=== PATIENT | male | born 1955 | race Caucasian/White ===

== ENCOUNTER → 2016-09-12 | Outpatient (CLI) | payer OTHER ==
[~2016-09-12] MED LIST: ADDE30CA PO; CONC36TA4 PO; HYDR-3719 PO; IBUP-1114 PO; LASI40TA PO; MEDR4TAB PO; MULTCAP PO; OMEP20CA3 PO; PERC5TAB6 PO; TYLE325T5 PO; VARE05TA PO
--- NOTE | 2016-09-12 13:04 | REP ---
MRI BRAIN WITHOUT AND WITH CONTRAST: HISTORY: Lung carcinoma. CONTRAST: ProHance 18 mL. COMPARISON: 08/24/2015. Several punctate areas of increased signal intensity on T2-weighted images are present in the periventricular and subcortical white matter. This represents small vessel ischemic disease. There is no intraparenchymal hemorrhage, infarct, mass or midline shift. There is no abnormal enhancement. The ventricular system and cortical sulci are dilated consistent with minimal volume loss. There is no extracerebral collection. Minimal mucosal thickening is present in the left ethmoid and right maxillary sinuses. IMPRESSION: 1. Minimal small vessel ischemic disease. 2. Minimal volume loss. Signed by Elkin Smallwood MD 09/12/2016 01:08 P
== END ==
LOC: M RAD 10:52
PROVIDERS: ATTEND Internal Medicine Medical Oncology
DX: C34.90 Malignant neoplasm of unspecified part of unspecified bronchus or lung (principal); I73.9 Peripheral vascular disease, unspecified
CPT/HCPCS: 70553; A9576

== ENCOUNTER → 2016-09-17 | Outpatient (CLI) | payer OTHER ==
--- NOTE | 2016-09-18 07:13 | REP ---
PET/CT: History: Restaging non-small cell lung carcinoma. The patient is status post right middle lobectomy in August 2015 for a 3.5 cm mass. Recent CTs are shown enlarging subcarinal lymph node mass. Comparison CT study September 02, 2016. Comparison PET/CT study August 16, 2015. TECHNIQUE: 80 minutes following the intravenous injection of a 7.5 mCi dose of F-18 FDG, three-dimensional PET scintigraphy is acquired from the skull base to the proximal thighs. Triplanar noncontrast CT scanning is acquired through the same anatomic range for attenuation correction, and image registration with scan parameters optimized to minimize radiation exposure to the patient. PET scintigraphy and CT datasets were fused and displayed on a workstation with multiplanar and projection display capability. PET/CT Findings: There is hypermetabolic uptake in the subcarinal lymphadenopathy seen on recent CT study. Maximum standard uptake value in this thiago mass is 20.0. This lesion measures 4 cm in greatest diameter. No other abnormal hypermetabolic uptake is seen within the thorax. Head and neck soft tissues are unremarkable. No abnormal hypermetabolic uptake is seen in the abdomen or pelvis. Cholelithiasis is noted along with prominent vascular calcification. No abnormal skeletal hypermetabolic uptake is seen. No adrenal hypermetabolic uptake is observed. Impression: Hypermetabolic uptake is seen in the enlarging subcarinal lymph node mass consistent with recurrent malignancy. Signed by Wilbert Chandler MD 09/18/2016 10:12 A
== END ==
LOC: M RAD 07:42
PROVIDERS: ATTEND Internal Medicine Medical Oncology
DX: C34.90 Malignant neoplasm of unspecified part of unspecified bronchus or lung (principal); R59.9 Enlarged lymph nodes, unspecified

== ENCOUNTER 2016-10-06 12:57 | Outpatient (CLI) | payer OTHER ==
[2016-10-06] MEDS ORDERED: ADDE20CA PO (13:17)
[2016-10-06] MEDS ORDERED: fentaNYL 100 MCG/2 ML INJECTION (J3010) As Ordered ONE (13:29)
[2016-10-06] MEDS ORDERED: MIDAZOLAM INJ 2 MG/2 ML VIAL (J2250) As Ordered ONE ×2 (13:30→13:47)
[2016-10-06] MEDS ORDERED: LIDOCAINE VISCOUS 2% SOLN 15ML UDC As Ordered ONE (13:47)
[2016-10-06] MEDS ORDERED: LIDOCAINE 1% MDV 20ML VIAL As Ordered ONE ×2 (13:47→14:06)
[2016-10-06] MEDS ORDERED: THROMBIN SOLN 5,000 UNITS VIAL As Ordered ONE (14:07)
--- NOTE | 2016-10-06 14:45 | RO ---
DATE OF PROCEDURE: 10/06/2016 PREPROCEDURE DIAGNOSIS: Subcarinal adenopathy. POSTPROCEDURE DIAGNOSIS: Subcarinal adenopathy with chronic bronchitis and postsurgical changes. PROCEDURE: Fiberoptic bronchoscopy with washes, photos, and Lopez needle biopsy with fine needle aspirate. SURGEON: Dr. Angel Hamilton BRICK CATCHER: ANESTHESIA: Conscious sedation with 100 mcg of fentanyl and 6 mg of Versed given intravenously in a sequential fashion and titrated for effect. Other medications are topical thrombin 5000 units given via the bronchoscope. 2% viscous Xylocaine in the nose, Cetacaine spray in the pharynx, and 1% Xylocaine via the bronchoscope. Informed consent was obtained prior to the procedure. OPERATIVE FINDINGS: 1. Tortuous course of the trachea. 2. Changes of chronic bronchitis. 3. Subcarinal adenopathy. DESCRIPTION OF PROCEDURE: After the patient was identified and the above anesthesia given, the fiberoptic bronchoscope was easily passed via the left nares. Hypopharynx was entered and appeared normal. Cords moved well. The trachea was then entered. There was some narrowing with a mildly tortuous course, but this was all extrinsic and lateral. The sabrina was sharp and did move quite well. Both mainstem bronchi widely patent. The left lung was entered first. All segments and subsegments of upper and lower lobes easily identified and widely patent. Diffuse changes of chronic bronchitis were noted. The right lung was then entered. In the medial portion of the proximal right mainstem, some extrinsic changes were noted consistent with his known adenopathy. The upper lobe was widely patent. Diffuse changes of chronic bronchitis were noted. The middle lobe is surgically absent, and the surgical stump appeared grossly normal. Basilar segments were easily identified and widely patent. Attention was then turned to his adenopathy. Using a Lopez needle, two passes were made with good return of cellular material and what appeared to be at least one core. There was minimal bleeding, but topical thrombin was applied. Topical saline lavage employed, as well. When adequate hemostasis was assured, the scope was then withdrawn and the procedure terminated. The patient was taken to the recovery room in good and stable condition. No immediate complications of conscious sedation were identified. Chest x-ray was ordered for 1 hour postprocedure. Oxygen saturation remained greater than 98% throughout the examination.
[2016-10-06 15:15] VITALS: BP 125/80
--- NOTE | 2016-10-06 15:59 | REP ---
CHEST, ONE VIEW: HISTORY: Post-bronchoscopy. COMPARISON: 09/28/2015 There is loss of volume in the right hemithorax. Increased density is present in the right lower lobe consistent with scarring. The left lung is clear. The heart is normal in size. The pulmonary vasculature is normal in appearance. IMPRESSION: Right lower lobe scarring. Signed by Elkin Smallwood MD 10/06/2016 04:08 P
== END 2016-10-06 14:30 ==
LOC: M OPP 12:57
PROVIDERS: ATTEND Internal Medicine Pulmonary Disease
DX: C34.01 Malignant neoplasm of right main bronchus (principal); R59.0 Localized enlarged lymph nodes; Q32.1 Other congenital malformations of trachea; J42 Unspecified chronic bronchitis; F17.218 Nicotine dependence, cigarettes, with other nicotine-induced disorders; Z79.899 Other long term (current) drug therapy; Z86.19 Personal history of other infectious and parasitic diseases; Z98.890 Other specified postprocedural states
CPT/HCPCS: 31629; 71010; 87070; 87102; 87116; 87205; 87206; 88104; 88173; 88313; J2250; J3010

== ENCOUNTER → 2016-10-09 | Outpatient (CLI) | payer OTHER ==
[~2016-10-09] MED LIST changes: +ADDE20CA PO
--- NOTE | 2016-10-10 13:46 | RADONC ---
RADIATION ONCOLOGY CONSULTATION: DATE: 10/09/2016 CHART NO: [id number] DIAGNOSIS: Right lung cancer. STAGE: Stage I A, [id number], right now recurrent ECOG PERFORMANCE STATUS: 0 Mr. 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 HISTORY OF PRESENT ILLNESS: The patient was in his usual state of health but was found to have a lesion in his right middle lobe. On 08/27/2015, the patient underwent right middle lobectomy as well as mediastinal lymph node biopsy. 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 The tumor was 1.5 cm from the bronchial resection margin. Two peribronchial lymph nodes were identified and negative for metastatic disease. Several mediastinal lymph nodes were also sampled and were negative for disease as well. The tumor was staged at that time as a stage I A, [id number] lesion. In light of the patient's negative margins and small tumor, no postoperative radiation or chemotherapy was given. The patient did well until recently when a followup PET scan was undertaken on 09/17/2016 and showed a large 4 cm hypermetabolic mass in the subcarinal lymph node region consistent with recurrent malignancy. The SUV value was 20. On 10/06/2016, the patient underwent fine needle aspiration biopsy and pathology revealed malignancy consistent with metastatic poorly differentiated non-small cell carcinoma. The patient clearly was deemed not to be a surgical candidate and is now presenting for discussion of external beam radiation therapy as a therapeutic option. PAST MEDICAL HISTORY: The patient's past medical history is positive for hepatitis C and a history of pneumonia. ALLERGIES: The patient has no known drug allergies. SOCIAL HISTORY: The patient has smoked approximately three to four packs of cigarettes per day for 40 years. He does not abuse alcohol. FAMILY HISTORY: The patient's family history is negative for lung cancer or other malignancies. REVIEW OF SYSTEMS: The patient's review of systems is positive for some decreased energy as well as anxiety. 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 He denies nausea, vomiting, fevers, chills, night sweats, diplopia, headaches, anxiety or depression, anorexia, weight loss, visual disturbances, chest pain, urinary or bowel difficulties, bone pain, or neurological problems. PHYSICAL EXAMINATION: The patient is a well-developed, well-nourished male in no acute distress. HEENT exam is normocephalic, atraumatic. Extraocular movements are intact. There is no palpable cervical, supraclavicular, infraclavicular, axillary, or inguinal lymphadenopathy present. Lungs are clear to auscultation and percussion. Heart has a regular rate and rhythm. Abdomen is benign with no hepatosplenomegaly, masses, or tenderness. Skeletal examination reveals no tenderness to pressure or percussion of the bony skeleton. Extremities reveal no clubbing, cyanosis, or edema. Neurologic exam is grossly intact, as is the remainder of the physical examination. ASSESSMENT: Clearly Mr. Reyez is a candidate for external beam radiation therapy and I have so informed him. I have discussed with the patient in detail the potential benefits as well as possible acute and chronic sequelae of external beam radiation therapy. We discussed logistics of treatment planning, simulation and subsequent fractionated daily radiation. I have personally reviewed the patient's PET scan done on 09/17/2016 with the patient and his . There does not appear to be any evidence of widely metastatic disease and indeed the disease still appears localized. Therefore I believe aggressive therapy is warranted. Apparently the patient is scheduled to meet with Dr. Vergara at Dr. Franklin's request. I suspect they are attempting to obtain some additional tumor specimen for various Identification markers. I will be scheduling the patient for simulation and subsequent initiation of treatment planning. Again thank you for allowing us to participate in the care of this very pleasant gentleman. I will keep you informed as any new developments as they occurs. As always warm regards, cc: MD Giancarlo Caputo MD Lawrence Kramer, MD *Jon Zaman MD
== END ==
LOC: M ONCR 14:05
PROVIDERS: ATTEND Radiology Radiation Oncology
DX: C34.90 Malignant neoplasm of unspecified part of unspecified bronchus or lung (principal)

== ENCOUNTER 2016-10-21 10:09 | Outpatient (RCR) | payer OTHER ==
--- NOTE | 2016-10-21 11:30 | RADONC ---
RADIATION ONCOLOGY SIMULATION NOTE: DATE OF SERVICE: 10/21/2016 CHART NO: [id number] Mr. Reyez was taken to the CT scan for CT simulation of his mediastinal field. CT was accomplished without difficulty or discomfort. Radiation treatment planning is underway and radiation treatments will begin subsequently. An immobilization device was created again without difficulty or discomfort. It will be used throughout the course of treatment. I was physically present throughout the course of CT simulation.
--- NOTE | 2016-10-28 07:08 | RADONC ---
RADIATION ONCOLOGY PROGRESS NOTE DATE: 10/27/2016 CHART NUMBER: [id number] Mr. Reyez had been scheduled to start radiation as well as chemotherapy today. His plan is complete and we have been ready to start. Apparently, the patient went over to medical oncology here in [place] this morning for his first chemotherapy. He became very upset, walked out of there and came right to our department where he told me he will not go back there and will not be treated in such a facility. He reported that people are rude and treated him as though they were doing him a huge favor by having him there. I have had the patient speak and register his issues with our health services manager, Chuy Moore, as well as our nurse navigator, Saray Parish. In addition, we have called the medical oncology department at [facility] in [place] and asked them to please see this patient as soon as possible. The patient's had been treated at [facility] and the patient requested that he be seen there. He is quite comfortable there. In light of the fact that he is now not receiving chemotherapy, at least at the beginning of this week, I have now delayed the beginning of his treatments until Thursday. I do not wish to delay it much further. I have obtained a guarantee that they will be seeing him at [facility] within 7 days. In light of this, we are planning to start him on Thursday. This way at [place] he will only have a few treatments without concomitant chemotherapy. In the meantime, we have already begun treating his recurrent lung cancer. Once again, in summary, the patient will be receiving systemic therapy now at [facility], hopefully, beginning early next week. Radiation will begin on Thursday instead of today.
--- NOTE | 2016-11-03 11:18 | RADONC ---
RADIATION ONCOLOGY PROGRESS NOTE DATE: 11/03/2016 CHART NUMBER: [id number] Mr. Reyez is presently at a dose 720 cGy to his mediastinum and is tolerating treatments quite well at this point with no complaints related to his radiation therapy. He is having no difficulty swallowing or other problems. REVIEW OF SYSTEMS: The patient's review of systems is noncontributory. Denies nausea, vomiting, fevers, chills, night sweats, diplopia, headaches, anxiety or depression, anorexia, weight loss, visual disturbances, chest pain, urinary or bowel difficulties, bone pain, or neurological problems. PHYSICAL EXAMINATION: The patient's skin is in good condition with no evidence of radiation change present. There is no moist or dry desquamation. The remainder of his physical exam remains unchanged. Mr. Reyez is tolerating treatments quite well and radiation will continue as scheduled.
--- NOTE | 2016-11-11 06:57 | RADONC ---
RADIATION ONCOLOGY PROGRESS NOTE CHART NUMBER: [id number] Mr. Reyez is presently at a dose of 1620 cGy to his mediastinum and is tolerating treatments quite well at this point with no complaints related to his radiation therapy. He is having no difficulty swallowing or increased difficulty breathing. REVIEW OF SYSTEMS: The patient's review of systems is noncontributory. Denies nausea, vomiting, fevers, chills, night sweats, diplopia, headaches, anxiety or depression, anorexia, weight loss, visual disturbances, chest pain, urinary or bowel difficulties, bone pain, or neurological problems. PHYSICAL EXAMINATION: The patient's skin is in good condition with no evidence of radiation change present. There is no moist or dry desquamation. The remainder of his physical exam remains unchanged. Mr. Reyez is tolerating treatments quite well and radiation will continue as scheduled.
== END 2016-11-16 ==
LOC: M ONCR 10:09
PROVIDERS: ATTEND Radiology Radiation Oncology
DX: C77.1 Secondary and unspecified malignant neoplasm of intrathoracic lymph nodes (principal); C34.2 Malignant neoplasm of middle lobe, bronchus or lung

== ENCOUNTER → 2016-10-21 | Outpatient (CLI) | payer OTHER | LOC: M RAD 08:21 | PROVIDERS: ATTEND Radiology Radiation Oncology | DX: C34.90 Malignant neoplasm of unspecified part of unspecified bronchus or lung (principal) ==

== ENCOUNTER 2016-11-17 11:12 | Outpatient (RCR) | payer OTHER ==
--- NOTE | 2016-11-17 12:40 | RADONC ---
RADIATION ONCOLOGY PROGRESS NOTE DATE: 11/17/2016 Mr. Reyez is presently at a dose of 2520 cGy to his mediastinum and is tolerating treatments quite well at this point with no complaints at this time related to his radiation therapy. He is having no significant esophagitis. The patient does report that he has been on narcotic pain medication and he has not had a bowel movement in 3 days. He says because of this he has not felt like eating. He has even vomited. REVIEW OF SYSTEMS The patient's review of systems is positive for constipation but is otherwise noncontributory. Denies nausea, vomiting, fevers, chills, night sweats, diplopia, headaches, anxiety or depression, anorexia, weight loss, visual disturbances, chest pain, urinary or bowel difficulties, bone pain, or neurological problems. PHYSICAL EXAMINATION: The patient weighs 199.4 pounds, down 5-1/2 pounds since last week. His skin is in good condition with no evidence of radiation change present. The remainder of his physical exam remains unchanged. Mr. Reyez is tolerating radiation quite well and radiation treatments will continue as scheduled. I have recommended a Fleet's enema to be tried today. We will continue to follow him closely. If his symptoms worsen, I have recommended that he come to the emergency room.
--- NOTE | 2016-11-24 11:25 | RADONC ---
RADIATION ONCOLOGY PROGRESS NOTE DATE: 11/24/2016 CHART NUMBER: [id number] Mr. Reyez is presently at a dose of 3420 cGy to his mediastinum and is tolerating treatments quite well at this point with no significant difficulties related to his radiation therapy other than some mild esophagitis. REVIEW OF SYSTEMS: The patient's review of systems is positive for his esophagitis but is otherwise noncontributory. He denies nausea, vomiting, fevers, chills, night sweats, diplopia, headaches, anxiety or depression, anorexia, weight loss, visual disturbances, chest pain, urinary or bowel difficulties, bone pain or neurological problems. PHYSICAL EXAMINATION: The patient's skin is in good condition with no evidence of radiation change present. There is no moist or dry desquamation. The remainder of his physical exam remains unchanged. Mr. Reyez is tolerating treatments quite well and radiation will continue as scheduled.
--- NOTE | 2016-12-01 12:51 | RADONC ---
RADIATION ONCOLOGY PROGRESS NOTE DATE: 12/01/2016 CHART NUMBER: [id number] Mr. Reyez is presently at a dose of 4320 cGy to his mediastinum and is tolerating his radiation without difficulty. Since chemotherapy, however he has had a significant amount of nausea and vomiting. The patient presents today that he has been dizzy as well as short of breath and feeling weak. His urine is dark in color and he has been vomiting and having difficulty keeping food and water down. He denies fevers, chills, night sweats, diplopia, headaches, anxiety or depression, visual disturbances, bowel difficulties, bone pain or neurological problems. PHYSICAL EXAMINATION: The patient's weight is down approximately 6.2 pounds in 1 week. The skin over the treated field shows some erythema but overall is in good condition with no evidence of moist or dry desquamation. The patient's lungs are clear to auscultation and percussion. The remainder of his physical exam remains unchanged. The patient is actually tolerating his radiation treatments quite well. I am giving the patient a liter of IV fluids today as clearly he appears to be dehydrated. He has antiemetic medication from Dr. Fonseca and he is scheduled to see Dr. Fonseca tomorrow. I await Dr. Fonseca's, his medical oncologist's, expert opinion with regards to his systemic therapy and antiemetic treatment. We will continue to follow him closely. He is not this time complaining of esophagitis. Radiation will continue as scheduled. MTDD
--- NOTE | 2016-12-08 12:00 | RADONC ---
RADIATION ONCOLOGY PROGRESS NOTE DATE: 12/08/2016 CHART NUMBER: [id number] Mr. Reyez is presently at a dose of 5220 cGy to his mediastinum and is tolerating treatments quite well at this point with no significant complaints related to his radiation therapy. He is having no increased difficulty swallowing or breathing. The patient's review of systems is positive for some dysphasia and weakness as well as loss of taste but is otherwise generally noncontributory. He denies nausea, vomiting, fevers, chills, night sweats, diplopia, headaches, anxiety or depression, anorexia, weight loss, visual disturbances, chest pain, urinary or bowel difficulties, bone pain, or neurological problems. PHYSICAL EXAMINATION: The patient's skin is in good condition with no evidence of moist or dry desquamation. The remainder of his physical exam remains unchanged. Mr. Reyez is tolerating treatments quite well and radiation will continue as scheduled.
--- NOTE | 2016-12-16 10:03 | RADONC ---
RADIATION ONCOLOGY TREATMENT SUMMARY DATE: 12/16/2016 CHART NUMBER: [id number] DIAGNOSIS: Right lung cancer stage I A, [id number], recurrent. ECOG performance status 0. TREATMENT SUMMARY: Mr. 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 We treated the patient to his mediastinum for a dose of 5940 cGy delivered in 33 fractions of 180 cGy each over 44 elapsed days from 10/29/2016 through 12/12/2016. The patient's mass was treated on a linear accelerator utilizing an 18 MV photon beam via a four field technique utilizing 3-D conformal therapy. Mr. Reyez tolerated his treatments quite well with no significant difficulties related to his radiation therapy. He was able to complete therapy as prescribed without interruption. I have scheduled the patient to see me again in 1 month for further followup. He will also continue to be followed by his other physicians as well. cc: MD Giancarlo Caputo MD Lawrence Kramer, MD *Dr. Jon Zaman *Polo Fonseca MD
== END 2016-12-17 ==
LOC: M ONCR 11:12
PROVIDERS: ATTEND Radiology Radiation Oncology
DX: C34.12 Malignant neoplasm of upper lobe, left bronchus or lung (principal); C77.1 Secondary and unspecified malignant neoplasm of intrathoracic lymph nodes

== ENCOUNTER → 2016-11-28 | Outpatient (CLI) | payer OTHER ==
--- NOTE | 2016-11-28 08:05 | REP ---
Clinical: Elevated bilirubin levels and liver function tests. Technique: Real time bingham scale ultrasound examination using curved array transducer. Findings: Hepatosplenomegaly is appreciated without focal hepatic or splenic lesions identified. The pancreas is incompletely evaluated due to interposed bowel gas, but visualized portions appear normal. The gallbladder demonstrates multiple mobile gallstones and layering sludge without wall thickening or pericholecystic fluid. No sonographic Chen's sign is elicited. No biliary ductal dilatation is appreciated and the common bile duct measures 5 mm diameter. Bilateral kidneys demonstrate chronic renovascular calcifications. Mild right renal hydronephrosis is suggested. No renal cystic or mass lesions are identified bilaterally. Right kidney measures 11.5 x 6.6 x 5.6 cm. Left kidney measures 11.1 x 5.2 x 4.7 cm. Abdominal aorta demonstrates atherosclerotic changes and measures 2.6 cm maximal diameter. No ascites. Impression: 1. Hepatosplenomegaly without focal hepatic or splenic lesions identified. 2. Cholelithiasis without sonographic evidence for acute cholecystitis or biliary ductal dilatation. 3. Kidneys demonstrate chronic changes along with mild right renal hydronephrosis. Signed by Doug Marshall MD 11/28/2016 07:56 A
== END ==
LOC: M RAD 06:51
PROVIDERS: ATTEND Internal Medicine Hematology & Oncology
DX: C34.90 Malignant neoplasm of unspecified part of unspecified bronchus or lung (principal); E80.6 Other disorders of bilirubin metabolism; R16.2 Hepatomegaly with splenomegaly, not elsewhere classified; K80.20 Calculus of gallbladder without cholecystitis without obstruction; N13.30 Unspecified hydronephrosis

== ENCOUNTER → 2017-01-14 | Outpatient (CLI) | payer OTHER ==
[~2017-01-14] MED LIST changes: -ADDE20CA PO; +ADDE20CA3 PO; -ADDE30CA PO; +ADDE30CA3 PO; +PERC5TAB12 PO; -PERC5TAB6 PO
== END ==
LOC: M ONCR 10:25
PROVIDERS: ATTEND Radiology Radiation Oncology
DX: C34.12 Malignant neoplasm of upper lobe, left bronchus or lung (principal); C77.1 Secondary and unspecified malignant neoplasm of intrathoracic lymph nodes

== ENCOUNTER → 2017-02-06 | Outpatient (CLI) | payer OTHER ==
[~2017-02-06] MED LIST changes: +ISOVUE-370 76% 100ML VIAL (Q9967) As Ordered ONE
--- NOTE | 2017-02-09 02:16 | REP ---
Clinical: History of lung cancer for follow up. Technique: Axial contrast enhanced images from the thoracic inlet to the upper abdomen using 100 ml Isovue 370 intravenous contrast material with coronal and sagittal re-formations. Comparison: PET CT dated 09/17/2016. Chest CT dated 09/02/2016. Findings: Moderate COPD/emphysematous changes including scattered bullae/blebs, bronchiectasis, bilateral scarring (right greater than left) and right-sided postsurgical changes are again appreciated and relatively stable. No acute pulmonary parenchymal consolidation, nodule or mass lesion is identified. Mediastinal and hilar adenopathy is considerably improved when compared to prior examination. Specifically, the previously identified subcarinal thiago mass now measures roughly 1.7 x 2.9 cm maximal diameter (previously measuring 3.0 x 4.2 cm maximal diameter at the same level). No pleural effusion or pneumothorax. Mild atherosclerotic changes to the thoracic aorta and coronary arteries again noted without cardiomegaly or significant pericardial effusion. [id number] is identified extending into the SVC. Musculoskeletal structures are unchanged and without focal osseous abnormality identified. Limited evaluation of the upper abdomen demonstrates normal bilateral adrenal glands, and evidence for cholelithiasis. Impression: 1. Decreased adenopathy as described above. 2. No new, acute, mediastinal or pleuroparenchymal process otherwise appreciated. 3. Chronic stable COPD/emphysematous changes, bilateral scarring and right-sided postsurgical changes. 4. Cholelithiasis. Signed by Doug Marshall MD 02/09/2017 02:07 A
== END ==
LOC: M RAD 16:59
PROVIDERS: ATTEND Internal Medicine Hematology & Oncology
DX: C34.90 Malignant neoplasm of unspecified part of unspecified bronchus or lung (principal); Z92.21 Personal history of antineoplastic chemotherapy; Z92.3 Personal history of irradiation; J44.9 Chronic obstructive pulmonary disease, unspecified; K80.20 Calculus of gallbladder without cholecystitis without obstruction

== ENCOUNTER → 2017-04-28 | Outpatient (CLI) | payer OTHER ==
--- NOTE | 2017-04-29 05:27 | REP ---
Clinical: Lung cancer for restaging. Technique: Axial contrast enhanced images from the thoracic inlet to the upper abdomen using 100 ml Isovue 370 intravenous contrast material with coronal and sagittal re-formations. Comparison: 02/06/2017, 09/02/2016. Findings: Mild emphysematous changes and diffuse chronic age-related interstitial changes appear to have slightly progressed when compared to prior examinations. Scattered bilateral scarring and right-sided postsurgical changes remain essentially stable. Mediastinal and hilar soft tissue remains essentially unchanged when compared to 02/06/2017 and again improved when compared to 09/02/2016. No new, significant pulmonary parenchymal consolidation nodule or mass lesion is appreciated. No new or increased adenopathy is identified. Further evaluation of the mediastinum demonstrates a small to moderate pericardial effusion which appears to be increased compared to prior examination. Moderate atherosclerotic changes of the coronary arteries noted without cardiomegaly. Thoracic aorta is without aneurysm or dissection. Surrounding musculoskeletal structures demonstrate stable age-related changes and postoperative changes involving the right ribs. Limited evaluation of the upper abdomen demonstrates small amount of layering sludge in the gallbladder. Impression: 1. Chronic mediastinal and pleuroparenchymal changes as described above including mildly progressive emphysematous changes and age-related interstitial changes as well as stable appearance to the scattered scarring and right-sided postsurgical changes. 2. Adenopathy/soft tissue in the mediastinum and tori remain unchanged compared to 02/06/2017. 3. Small/moderate pericardial effusion along with atherosclerotic changes to the coronary arteries and no evidence for cardiomegaly. 4. No further acute mediastinal or pleuroparenchymal process. Signed by Doug Marshall MD 04/29/2017 05:18 A
== END ==
LOC: M RAD 13:30
PROVIDERS: ATTEND Internal Medicine Hematology & Oncology
DX: C34.90 Malignant neoplasm of unspecified part of unspecified bronchus or lung (principal)

== ENCOUNTER → 2017-09-10 | Outpatient (CLI) | payer MEDICARE ==
[~2017-09-10] MED LIST changes: -ADDE20CA3 PO; -ADDE30CA3 PO; -CONC36TA4 PO; -HYDR-3719 PO; -IBUP-1114 PO; +ISOVUE-370 76% 100ML VIAL (Q9967) As Ordered; -ISOVUE-370 76% 100ML VIAL (Q9967) As Ordered ONE; -LASI40TA PO; -MEDR4TAB PO; -MULTCAP PO; -OMEP20CA3 PO; -PERC5TAB12 PO; -TYLE325T5 PO; -VARE05TA PO
== END ==
LOC: M RAD 12:20
DX: C34.91 Malignant neoplasm of unspecified part of right bronchus or lung (principal)
CPT/HCPCS: Q9967

== ENCOUNTER → 2018-03-11 | Outpatient (CLI) | payer MEDICARE ==
[2018-03-11 12:20] LABS: ALBUMIN/GLOBULIN RATIO 1.29 (1.00-1.93); ALKALINE PHOSPHATASE 88 U/L (45-117); ALT/SGPT 17 U/L (12-78); ANION GAP 5 MEQ/L (8-16); AST/SGOT 12 U/L (7-37); BLOOD UREA NITROGEN 10 MG/DL (7-18); CALCIUM LEVEL 8.7 MG/DL (8.8-10.2); CARBON DIOXIDE LEVEL 29 MEQ/L (21-32); CHLORIDE LEVEL 104 MEQ/L (98-107); CREATININE FOR GFR 0.71 MG/DL (0.70-1.30); GLOMERULAR FILTRATION RATE > 60.0 (>49); GLUCOSE, FASTING 83 MG/DL (70-100); POTASSIUM SERUM 4.9 MEQ/L (3.5-5.1); SODIUM LEVEL 138 MEQ/L (136-145); TOTAL PROTEIN 7.1 GM/DL (6.4-8.2)
== END ==
LOC: M LAB 10:41
DX: C34.91 Malignant neoplasm of unspecified part of right bronchus or lung (principal)
CPT/HCPCS: 80053

== ENCOUNTER → 2018-06-14 | Outpatient (CLI) | payer MEDICARE | LOC: M RAD 10:49 | DX: C34.2 Malignant neoplasm of middle lobe, bronchus or lung (principal); R91.1 Solitary pulmonary nodule | CPT/HCPCS: Q9967 ==

== ENCOUNTER → 2018-08-12 | Outpatient (CLI) | payer MEDICARE ==
[~2018-08-12] MED LIST changes: +ADDE20CA3 PO; +ADDE30CA3 PO; +CONC36TA4 PO; +EMLA CREAM 5GM (LIDOCAINE/PRILOCAINE) As Ordered ONE; +HYDR-3719 PO; +IBUP-1114 PO; -ISOVUE-370 76% 100ML VIAL (Q9967) As Ordered; +LASI40TA9 PO; +MEDR4TAB PO; +MULTCAP PO; +OMEP20CA3 PO; +PERC5TAB12 PO; +TYLE325T5 PO; +VARE05TA PO
--- NOTE | 2018-08-12 15:42 | REP ---
CT CHEST WITH IV CONTRAST: TECHNIQUE: Axial contrast enhanced images from the thoracic inlet to the upper abdomen using 100 mL Isovue 370 intravenous contrast material with multiplanar reformations. 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 Once again there are multiple subcentimeter nodular opacities in the right lung. Three or four in the right lower lobe have essentially resolved. However, several others are unchanged. There is also a new nodular density 4 mm in diameter in the right lower lobe on image 57 and another posteriorly in the right lower lobe on image 69 measuring 8 mm in diameter. On the left, three of the previously identified tiny nodular opacities in the perihilar region have essentially resolved. However, there is a new 5 mm nodule in the left upper lobe on image 43 and another 4 mm nodule more inferiorly in the lingula on image 61. Two new 3 mm nodules are seen in the left lower lobe on image 63 and 64. No other new lung findings are visualized. Mediastinal soft tissue structures are unchanged. Very mild scattered fluid in pericardial recesses is again noted. There are mild atherosclerotic calcifications of the thoracic aorta without aneurysm. No axillary adenopathy is seen. There are degenerative changes of the spine. Visualized upper abdominal structures appear unchanged. Multiple gallstones are seen in a contracted gallbladder. IMPRESSION: Multiple subcentimeter nodular opacities in both lungs again noted, some have resolved, several are unchanged, and there are a few new similar appearing nodular densities bilaterally as discussed in detail above. Again differential diagnosis would include metastatic lesions or sequela from an inflammatory etiology. No other new findings. Electronically Signed by Vince Curiel MD 08/12/2018 07:44 P
== END ==
LOC: M RAD 10:54
PROVIDERS: ATTEND Internal Medicine Hematology & Oncology
DX: C34.2 Malignant neoplasm of middle lobe, bronchus or lung (principal)

== ENCOUNTER → 2018-11-22 | Outpatient (CLI) | payer MEDICARE ==
[~2018-11-22] MED LIST changes: -EMLA CREAM 5GM (LIDOCAINE/PRILOCAINE) As Ordered ONE; +ISOVUE-370 76% 100ML VIAL (Q9967) As Ordered ONE
--- NOTE | 2018-11-22 09:03 | REP ---
Chest CT with IV contrast: History: Pulmonary nodule. Comparison chest CT study August 12, 2018. June 14, 2018 study is also reviewed. CT contrast dose: 75 ml of intravenous Isovue 370. CT findings: There is a waxing and waning pattern of multiple predominately tiny scattered bilateral pulmonary nodules. Several of these have clearly either resolved or improved. Multiple new tiny pulmonary nodules are identified. General, the appear more numerous. There are post thoracotomy and postradiation therapy changes again noted on the right. Emphysematous changes are again noted. There is no evidence of pleural effusion. No pulmonary mass lesion is identified. No pericardial effusion is seen. There is vascular calcification including bilateral coronary artery vascular calcification. Right-sided [id number] catheter is noted. No definite hilar or mediastinal mass or adenopathy is observed. No adrenal lesion is seen on either side. There is opaque material layering in the gallbladder lumen consistent with mineral containing sludge or gravel like stones. The spleen appears prominent, 16 cm in greatest transverse dimension, the visualized upper abdominal structures are otherwise unremarkable. No bony destructive lesion is seen. Impression: Waxing and waning pattern of bilateral pulmonary nodules noted with multiple new nodules. The nodules appear generally more numerous but several clearly resolved or improved since the prior exam. Electronically Signed by Wilbert Chandler MD 11/22/2018 11:40 A
== END ==
LOC: M RAD 07:24
PROVIDERS: ATTEND Internal Medicine Hematology & Oncology
DX: C34.2 Malignant neoplasm of middle lobe, bronchus or lung (principal)
CPT/HCPCS: 71260; Q9967

== ENCOUNTER → 2019-02-03 | Outpatient (CLI) | payer MEDICARE ==
[~2019-02-03] MED LIST changes: -OMEP20CA3 PO; +OMEP20CA4 PO
--- NOTE | 2019-02-03 18:01 | REP ---
CT of the chest with IV contrast for follow up of lung nodules: Comparison is 11/22/2018. On the comparison study there are multiple small lung nodules. Almost all of the previous nodules have resolved except for two persisting nodules on the right one in the right upper lobe on image 34, and the other in the right lower lobe on image 68. Both of these nodules have decreased in size. All of the other nodules have resolved. There are no new lung nodules. There are no infiltrates. No pleural effusions. There is right paramediastinal fibrosis, unchanged, compatible with radiation therapy. The radiation therapy changes extend to the subcarinal mediastinum. This is unchanged. There is no mediastinal lymph node enlargement. No left hilar lymph node enlargement. No axillary lymph node enlargement. The thoracic aorta is unremarkable. Cardiac size is normal. Coronary artery calcified atheroma is again identified. There is no pericardial effusion. Upper abdomen: There is no adrenal mass. There is opaque debris versus multiple tiny gallbladder calculi along the dependent wall of the gallbladder. This is unchanged. Impression: The multiple tiny lung nodules have almost all resolved. There are two remaining small lung nodules in the right lung as described, both decreased in size. There are other chronic changes as described. Electronically Signed by Vince Wilcox MD 02/03/2019 05:52 P
== END ==
LOC: M RAD 14:16
PROVIDERS: ATTEND Physician Assistant
DX: C34.2 Malignant neoplasm of middle lobe, bronchus or lung (principal); J84.10 Pulmonary fibrosis, unspecified; I25.84 Coronary atherosclerosis due to calcified coronary lesion
CPT/HCPCS: 71260; Q9967

== ENCOUNTER 2021-11-30 13:12 | Inpatient (IN) | payer MEDICARE ==
[2021-11-30] VITALS (9 sets, daily range): BP systolic 117; BP diastolic 61; O2SAT 96–99
[~2021-11-30] VITALS: Ht 177.8 cm; Wt 88.1 kg
[~2021-11-30 13:12] MED LIST changes: -ISOVUE-370 76% 100ML VIAL (Q9967) As Ordered ONE; +OMEP1CAP73 PO; -OMEP20CA4 PO
[2021-11-30] MEDS ORDERED: NIRM1TAB6 (13:38)
[2021-11-30 15:22] LABS: BASO % 0.2 % (0.0-1.0); EOS # 0.1 10^3/uL (0.0-0.5); EOS % 0.6 % (0.0-3.0); HEMATOCRIT 28.1 % (42.0-52.0); HEMOGLOBIN 9.9 g/dl (13.5-17.5); LYMPH % 7.9 % (24.0-44.0); MEAN CORPUSCULAR HEMOGLOBIN 32.1 pg (27.0-33.0); MEAN CORPUSCULAR HGB CONC 35.2 g/dl (32.0-36.5); MEAN CORPUSCULAR VOLUME 91.2 fl (80.0-96.0); MONO # 1.1 10^3/uL (0.0-0.8); MONO % 8.5 % (2.0-8.0); NEUTROPHILS # 10.4 10^3/uL (1.5-8.5); PLATELET COUNT, AUTOMATED 144 10^3/uL (150-450); RED BLOOD COUNT 3.08 10^6/uL (4.30-6.10); WHITE BLOOD COUNT 12.7 10^3/uL (4.0-10.0)
[2021-11-30 15:41] LABS: FIBRINOGEN 478 MG/DL (268-480); INR 1.37; PROTHROMBIN TIME 17.3 SECONDS (12.7-14.5)
[2021-11-30 15:42] LABS: PARTIAL THROMBOPLASTIN TIME 42.9 SECONDS (25.9-37.0)
[2021-11-30 15:51] LABS: ALBUMIN 3.2 GM/DL (3.2-5.2); ALT/SGPT 39 U/L (12-78); BILIRUBIN,TOTAL 3.6 MG/DL (0.2-1.0); BLOOD UREA NITROGEN 12 MG/DL (7-18); CALCIUM LEVEL 8.2 MG/DL (8.8-10.2); CARBON DIOXIDE LEVEL 23 MEQ/L (21-32); CHLORIDE LEVEL 108 MEQ/L (98-107); CREATININE FOR GFR 0.71 MG/DL (0.70-1.30); FERRITIN 822 NG/ML (26-388); GLOMERULAR FILTRATION RATE > 60.0 (>49); GLUCOSE, FASTING 92 MG/DL (70-100); LDH LACTATE DEHYDROGENASE 523 U/L (87-241); MAGNESIUM LEVEL 2.4 MG/DL (1.8-2.4); POTASSIUM SERUM 3.4 MEQ/L (3.5-5.1); SODIUM LEVEL 139 MEQ/L (136-145); TOTAL PROTEIN 6.8 GM/DL (6.4-8.2)
[2021-11-30 16:01] LABS: D-DIMER QUANT > 4000 ng/ml (<500)
[2021-11-30] MEDS ORDERED: ISOVUE-370 76% 100ML VIAL As Ordered ONE (16:20)
[2021-11-30] MEDS ORDERED: dexameTHASONE 20MG/5ML VIAL (J1100 PER 1MG) IV ONE (16:30)
[2021-11-30] MEDS ORDERED: cefTRIAXone SOD 1 GM in D5W MINI-BAG PLUS 50 ML IV ONE (17:15)
[2021-11-30] MEDS ORDERED: AZITHROMYCIN INJ 500 MG, VIAL MATE ADAPTER 1 EACH in NS 250 ML IV ONE (17:15)
[2021-11-30] MEDS ORDERED: HOME MED LIST COMPLETE! XX SCH (19:00)
[2021-11-30] MEDS ORDERED: ACETAMINOPHEN TAB 650MG DOSE (2X325MG) PO PRN (19:30)
[2021-11-30] MEDS: NS 1,000 ML IV SCH (19:30)
[2021-11-30] MEDS ORDERED: COMBIVENT RESPIMAT 100-20MCG INHALER 4GM INH PRN (19:30)
[2021-11-30 20:40] LABS: CK-MB VALUE MASS 10.2 NG/ML (<3.6); MB/CK RELATIVE INDEX 7.79 (< OR =4)
[2021-11-30] MEDS ORDERED: ASPIRIN 81 MG CHEW TABLET PO ONE (21:20)
[2021-11-30 21:39] LABS: CK-MB VALUE MASS 10.6 NG/ML (<3.6); MB/CK RELATIVE INDEX 8.03 (< OR =4)
[2021-11-30] MEDS ORDERED: REMDESIVIR 200 MG in NS 250 ML IV ONE (22:00)
[2021-11-30] MEDS: guaiFENesin ER 600 MG TAB PO SCH (22:30)
[2021-11-30] MEDS: ENOXAPARIN 100MG/1ML SYRINGE (J1650 PER 10MG) SC SCH (22:31)
[2021-12-01] VITALS (14 sets, daily range): BP systolic 101–120; BP diastolic 52–66; O2SAT 94–98
[2021-12-01] MEDS ORDERED: SODIUM CHLORIDE 0.9% INJ 10 ML SYR IV ONE
[2021-12-01] MEDS: NS 1,000 ML IV SCH ×3 (03:30→16:15)
[2021-12-01] MEDS: ASPIRIN 81 MG CHEW TABLET PO SCH (08:19)
[2021-12-01] MEDS: guaiFENesin ER 600 MG TAB PO SCH ×2 (08:19→19:49)
[2021-12-01] MEDS: hydrOXYzine 25 MG TAB PO PRN ×2 (08:19→22:43)
[2021-12-01] MEDS ORDERED: dexameTHASONE 4 MG/ML 1ML VIAL (J1100 PER 1MG) IV SCH (09:00)
[2021-12-01] MEDS: ENOXAPARIN 100MG/1ML SYRINGE (J1650 PER 10MG) SC SCH ×2 (09:38→21:27)
[2021-12-01 09:59] LABS: BASO % 0.1 % (0.0-1.0); HEMATOCRIT 30.1 % (42.0-52.0); HEMOGLOBIN 10.2 g/dl (13.5-17.5); LYMPH # 0.6 10^3/uL (1.5-5.0); LYMPH % 6.4 % (24.0-44.0); MEAN CORPUSCULAR HEMOGLOBIN 31.3 pg (27.0-33.0); MEAN CORPUSCULAR HGB CONC 33.9 g/dl (32.0-36.5); MEAN CORPUSCULAR VOLUME 92.3 fl (80.0-96.0); MONO # 0.3 10^3/uL (0.0-0.8); MONO % 3.2 % (2.0-8.0); NEUTROPHILS # 8.9 10^3/uL (1.5-8.5); NEUTROPHILS % 89.1 % (36.0-66.0); PLATELET COUNT, AUTOMATED 159 10^3/uL (150-450); RED BLOOD COUNT 3.26 10^6/uL (4.30-6.10)
[2021-12-01 10:24] LABS: ALBUMIN 2.8 GM/DL (3.2-5.2); ALT/SGPT 40 U/L (12-78); BILIRUBIN,DIRECT 0.9 MG/DL (0.0-0.2); BILIRUBIN,TOTAL 2.1 MG/DL (0.2-1.0); BLOOD UREA NITROGEN 13 MG/DL (7-18); CALCIUM LEVEL 8.4 MG/DL (8.8-10.2); CARBON DIOXIDE LEVEL 19 MEQ/L (21-32); CHLORIDE LEVEL 112 MEQ/L (98-107); CREATININE FOR GFR 0.65 MG/DL (0.70-1.30); GLOMERULAR FILTRATION RATE > 60.0 (>49); GLUCOSE, FASTING 162 MG/DL (70-100); MAGNESIUM LEVEL 2.4 MG/DL (1.8-2.4); POTASSIUM SERUM 3.5 MEQ/L (3.5-5.1); SODIUM LEVEL 141 MEQ/L (136-145); TOTAL PROTEIN 6.2 GM/DL (6.4-8.2)
[2021-12-01] MEDS: cefTRIAXone SOD 1 GM in D5W MINI-BAG PLUS 50 ML IV SCH (16:10)
[2021-12-01] MEDS: REMDESIVIR 100 MG in NS 250 ML IV SCH (19:50)
[2021-12-01] MEDS: SODIUM CHLORIDE 0.9% INJ 10 ML SYR IV SCH (21:27)
[2021-12-02] VITALS (11 sets, daily range): BP systolic 52–120; BP diastolic 52–70; O2SAT 91–97
[2021-12-02 06:11] LABS: BASO % 0.1 % (0.0-1.0); EOS % 0.1 % (0.0-3.0); HEMATOCRIT 30.1 % (42.0-52.0); HEMOGLOBIN 10.1 g/dl (13.5-17.5); LYMPH # 1.2 10^3/uL (1.5-5.0); LYMPH % 6.7 % (24.0-44.0); MEAN CORPUSCULAR HEMOGLOBIN 31.6 pg (27.0-33.0); MEAN CORPUSCULAR HGB CONC 33.6 g/dl (32.0-36.5); MEAN CORPUSCULAR VOLUME 94.1 fl (80.0-96.0); MONO # 1.3 10^3/uL (0.0-0.8); MONO % 7.6 % (2.0-8.0); NEUTROPHILS # 14.6 10^3/uL (1.5-8.5); NEUTROPHILS % 84.2 % (36.0-66.0); PLATELET COUNT, AUTOMATED 181 10^3/uL (150-450); WHITE BLOOD COUNT 17.3 10^3/uL (4.0-10.0)
[2021-12-02 06:21] LABS: INR 1.41; PROTHROMBIN TIME 17.7 SECONDS (12.7-14.5)
[2021-12-02 06:22] LABS: PARTIAL THROMBOPLASTIN TIME 49.6 SECONDS (25.9-37.0)
[2021-12-02 06:37] LABS: ALBUMIN 2.7 GM/DL (3.2-5.2); ALT/SGPT 39 U/L (12-78); BILIRUBIN,DIRECT 0.5 MG/DL (0.0-0.2); BILIRUBIN,TOTAL 1.1 MG/DL (0.2-1.0); BLOOD UREA NITROGEN 17 MG/DL (7-18); CALCIUM LEVEL 8.4 MG/DL (8.8-10.2); CARBON DIOXIDE LEVEL 19 MEQ/L (21-32); CHLORIDE LEVEL 113 MEQ/L (98-107); FERRITIN 824 NG/ML (26-388); GLOMERULAR FILTRATION RATE > 60.0 (>49); GLUCOSE, FASTING 88 MG/DL (70-100); LDH LACTATE DEHYDROGENASE 445 U/L (87-241); MAGNESIUM LEVEL 2.3 MG/DL (1.8-2.4); NT-PRO BNP 3621 PG/ML (<125); SODIUM LEVEL 140 MEQ/L (136-145); TOTAL PROTEIN 6.3 GM/DL (6.4-8.2)
[2021-12-02] MEDS: ASPIRIN 81 MG CHEW TABLET PO SCH (08:33)
[2021-12-02] MEDS: guaiFENesin ER 600 MG TAB PO SCH ×2 (08:33→20:35)
[2021-12-02] MEDS: NS 1,000 ML IV SCH (08:34)
[2021-12-02] MEDS: ENOXAPARIN 100MG/1ML SYRINGE (J1650 PER 10MG) SC SCH ×2 (10:25→22:30)
[2021-12-02] MEDS: cefTRIAXone SOD 1 GM in D5W MINI-BAG PLUS 50 ML IV SCH (16:56)
[2021-12-02] MEDS: AZITHROMYCIN INJ 500 MG, VIAL MATE ADAPTER 1 EACH in NS 250 ML IV SCH (17:44)
[2021-12-02] MEDS: REMDESIVIR 100 MG in NS 250 ML IV SCH (20:36)
[2021-12-02] MEDS: SODIUM CHLORIDE 0.9% INJ 10 ML SYR IV SCH (22:29)
[2021-12-03] VITALS (15 sets, daily range): BP systolic 96–105; BP diastolic 53–63; O2SAT 88–96
[2021-12-03 06:37] LABS: BASO % 0.2 % (0.0-1.0); EOS # 0.2 10^3/uL (0.0-0.5); EOS % 1.5 % (0.0-3.0); HEMATOCRIT 27.2 % (42.0-52.0); HEMOGLOBIN 9.4 g/dl (13.5-17.5); LYMPH # 0.8 10^3/uL (1.5-5.0); LYMPH % 6.9 % (24.0-44.0); MEAN CORPUSCULAR HEMOGLOBIN 32.1 pg (27.0-33.0); MEAN CORPUSCULAR HGB CONC 34.6 g/dl (32.0-36.5); MEAN CORPUSCULAR VOLUME 92.8 fl (80.0-96.0); MONO # 0.9 10^3/uL (0.0-0.8); MONO % 8.3 % (2.0-8.0); NEUTROPHILS # 9.3 10^3/uL (1.5-8.5); PLATELET COUNT, AUTOMATED 161 10^3/uL (150-450); RED BLOOD COUNT 2.93 10^6/uL (4.30-6.10); WHITE BLOOD COUNT 11.4 10^3/uL (4.0-10.0)
[2021-12-03 06:57] LABS: BLOOD UREA NITROGEN 17 MG/DL (7-18); CALCIUM LEVEL 7.9 MG/DL (8.8-10.2); CARBON DIOXIDE LEVEL 19 MEQ/L (21-32); CHLORIDE LEVEL 113 MEQ/L (98-107); CREATININE FOR GFR 0.64 MG/DL (0.70-1.30); GLOMERULAR FILTRATION RATE > 60.0 (>49); GLUCOSE, FASTING 72 MG/DL (70-100); MAGNESIUM LEVEL 2.1 MG/DL (1.8-2.4); POTASSIUM SERUM 4.5 MEQ/L (3.5-5.1); SODIUM LEVEL 140 MEQ/L (136-145)
[2021-12-03] MEDS: ASPIRIN 81 MG CHEW TABLET PO SCH (09:14)
[2021-12-03] MEDS: ENOXAPARIN 100MG/1ML SYRINGE (J1650 PER 10MG) SC SCH (09:15)
[2021-12-03] MEDS: dexameTHASONE 20MG/5ML VIAL (J1100 PER 1MG) IV SCH (09:15)
[2021-12-03] MEDS: guaiFENesin ER 600 MG TAB PO SCH ×2 (09:15→20:43)
[2021-12-03] MEDS: cefTRIAXone SOD 1 GM in D5W MINI-BAG PLUS 50 ML IV SCH (17:03)
[2021-12-03] MEDS: AZITHROMYCIN INJ 500 MG, VIAL MATE ADAPTER 1 EACH in NS 250 ML IV SCH (17:46)
[2021-12-03] MEDS: REMDESIVIR 100 MG in NS 250 ML IV SCH (20:43)
[2021-12-03] MEDS: APIXABAN 5 MG TAB (ELIQUIS) PO SCH (20:43)
[2021-12-03] MEDS: SODIUM CHLORIDE 0.9% INJ 10 ML SYR IV SCH (22:12)
[2021-12-04] VITALS (9 sets, daily range): BP systolic 91–122; BP diastolic 44–68; O2SAT 92–94
[2021-12-04 06:47] LABS: BASO % 0.1 % (0.0-1.0); EOS % 0.3 % (0.0-3.0); HEMATOCRIT 28.5 % (42.0-52.0); HEMOGLOBIN 9.8 g/dl (13.5-17.5); LYMPH # 0.9 10^3/uL (1.5-5.0); LYMPH % 7.4 % (24.0-44.0); MEAN CORPUSCULAR HEMOGLOBIN 32.2 pg (27.0-33.0); MEAN CORPUSCULAR HGB CONC 34.4 g/dl (32.0-36.5); MEAN CORPUSCULAR VOLUME 93.8 fl (80.0-96.0); MONO % 7.9 % (2.0-8.0); NEUTROPHILS # 10.5 10^3/uL (1.5-8.5); NEUTROPHILS % 83.3 % (36.0-66.0); PLATELET COUNT, AUTOMATED 171 10^3/uL (150-450); RED BLOOD COUNT 3.04 10^6/uL (4.30-6.10); WHITE BLOOD COUNT 12.6 10^3/uL (4.0-10.0)
[2021-12-04 06:57] LABS: INR 1.76; PROTHROMBIN TIME 20.9 SECONDS (12.7-14.5)
[2021-12-04 06:58] LABS: PARTIAL THROMBOPLASTIN TIME 49.1 SECONDS (25.9-37.0)
[2021-12-04 07:17] LABS: ALBUMIN 2.5 GM/DL (3.2-5.2); ALT/SGPT 45 U/L (12-78); BILIRUBIN,DIRECT 0.4 MG/DL (0.0-0.2); BILIRUBIN,TOTAL 1.1 MG/DL (0.2-1.0); BLOOD UREA NITROGEN 15 MG/DL (7-18); CALCIUM LEVEL 8.1 MG/DL (8.8-10.2); CARBON DIOXIDE LEVEL 21 MEQ/L (21-32); CHLORIDE LEVEL 110 MEQ/L (98-107); CREATININE FOR GFR 0.63 MG/DL (0.70-1.30); FERRITIN 705 NG/ML (26-388); GLOMERULAR FILTRATION RATE > 60.0 (>49); GLUCOSE, FASTING 80 MG/DL (70-100); LDH LACTATE DEHYDROGENASE 345 U/L (87-241); MAGNESIUM LEVEL 2.3 MG/DL (1.8-2.4); NT-PRO BNP 2562 PG/ML (<125); POTASSIUM SERUM 4.5 MEQ/L (3.5-5.1); SODIUM LEVEL 140 MEQ/L (136-145); TOTAL PROTEIN 5.6 GM/DL (6.4-8.2)
[2021-12-04] MEDS: guaiFENesin ER 600 MG TAB PO SCH ×2 (08:22→19:47)
[2021-12-04] MEDS: ASPIRIN 81 MG CHEW TABLET PO SCH (08:22)
[2021-12-04] MEDS: dexameTHASONE 20MG/5ML VIAL (J1100 PER 1MG) IV SCH (08:22)
[2021-12-04] MEDS: APIXABAN 5 MG TAB (ELIQUIS) PO SCH ×2 (08:22→19:47)
[2021-12-04] MEDS ORDERED: IPRATROPIUM 0.5MG/ALBUTEROL 2.5MG INH SOL UD 3ML (DUONEB) NEB PRN (08:50)
[2021-12-04] MEDS: BARICITINIB 2MG TABLET (OLUMIANT) FOR EUA PO SCH (10:40)
[2021-12-04] MEDS: cefTRIAXone SOD 1 GM in D5W MINI-BAG PLUS 50 ML IV SCH (17:11)
[2021-12-04] MEDS: AZITHROMYCIN INJ 500 MG, VIAL MATE ADAPTER 1 EACH in NS 250 ML IV SCH (18:19)
[2021-12-04] MEDS: REMDESIVIR 100 MG in NS 250 ML IV SCH (21:39)
[2021-12-04] MEDS: SODIUM CHLORIDE 0.9% INJ 10 ML SYR IV SCH (21:41)
[2021-12-05] VITALS (21 sets, daily range): BP systolic 91–134; BP diastolic 52–71; O2SAT 92–100
[2021-12-05 06:24] LABS: BASO % 0.1 % (0.0-1.0); EOS # 0.1 10^3/uL (0.0-0.5); EOS % 0.8 % (0.0-3.0); HEMATOCRIT 32.2 % (42.0-52.0); HEMOGLOBIN 11.1 g/dl (13.5-17.5); LYMPH # 1.6 10^3/uL (1.5-5.0); LYMPH % 10.3 % (24.0-44.0); MEAN CORPUSCULAR HEMOGLOBIN 31.7 pg (27.0-33.0); MEAN CORPUSCULAR HGB CONC 34.5 g/dl (32.0-36.5); MONO # 1.1 10^3/uL (0.0-0.8); MONO % 7.2 % (2.0-8.0); NEUTROPHILS # 12.3 10^3/uL (1.5-8.5); NEUTROPHILS % 80.5 % (36.0-66.0); PLATELET COUNT, AUTOMATED 205 10^3/uL (150-450); WHITE BLOOD COUNT 15.3 10^3/uL (4.0-10.0)
[2021-12-05 06:50] LABS: BLOOD UREA NITROGEN 16 MG/DL (7-18); CALCIUM LEVEL 8.4 MG/DL (8.8-10.2); CARBON DIOXIDE LEVEL 22 MEQ/L (21-32); CHLORIDE LEVEL 109 MEQ/L (98-107); GLOMERULAR FILTRATION RATE > 60.0 (>49); GLUCOSE, FASTING 76 MG/DL (70-100); MAGNESIUM LEVEL 2.3 MG/DL (1.8-2.4); SODIUM LEVEL 139 MEQ/L (136-145)
[2021-12-05] MEDS: APIXABAN 5 MG TAB (ELIQUIS) PO SCH ×2 (09:12→20:10)
[2021-12-05] MEDS: ASPIRIN 81 MG CHEW TABLET PO SCH (09:13)
[2021-12-05] MEDS: dexameTHASONE 20MG/5ML VIAL (J1100 PER 1MG) IV SCH (09:13)
[2021-12-05] MEDS: guaiFENesin ER 600 MG TAB PO SCH ×2 (09:13→20:10)
[2021-12-05] MEDS: BARICITINIB 2MG TABLET (OLUMIANT) FOR EUA PO SCH (09:13)
[2021-12-05] MEDS: cefTRIAXone SOD 1 GM in D5W MINI-BAG PLUS 50 ML IV SCH (16:54)
[2021-12-05] MEDS: AZITHROMYCIN INJ 500 MG, VIAL MATE ADAPTER 1 EACH in NS 250 ML IV SCH (17:43)
[2021-12-06] VITALS (24 sets, daily range): BP systolic 95–104; BP diastolic 53–66; O2SAT 87–98
[2021-12-06 07:09] LABS: BASO % 0.1 % (0.0-1.0); EOS # 0.2 10^3/uL (0.0-0.5); EOS % 1.1 % (0.0-3.0); HEMATOCRIT 30.9 % (42.0-52.0); HEMOGLOBIN 10.8 g/dl (13.5-17.5); LYMPH # 1.4 10^3/uL (1.5-5.0); MEAN CORPUSCULAR VOLUME 91.4 fl (80.0-96.0); MONO % 6.9 % (2.0-8.0); NEUTROPHILS # 11.5 10^3/uL (1.5-8.5); NEUTROPHILS % 80.8 % (36.0-66.0); PLATELET COUNT, AUTOMATED 208 10^3/uL (150-450); RED BLOOD COUNT 3.38 10^6/uL (4.30-6.10); WHITE BLOOD COUNT 14.3 10^3/uL (4.0-10.0)
[2021-12-06 07:25] LABS: INR 1.72; PROTHROMBIN TIME 20.6 SECONDS (12.7-14.5)
[2021-12-06 07:26] LABS: PARTIAL THROMBOPLASTIN TIME 52.2 SECONDS (25.9-37.0)
[2021-12-06 07:36] LABS: ALBUMIN 2.7 GM/DL (3.2-5.2); ALT/SGPT 43 U/L (12-78); BILIRUBIN,DIRECT 0.5 MG/DL (0.0-0.2); BILIRUBIN,TOTAL 1.1 MG/DL (0.2-1.0); BLOOD UREA NITROGEN 18 MG/DL (7-18); CALCIUM LEVEL 7.9 MG/DL (8.8-10.2); CARBON DIOXIDE LEVEL 25 MEQ/L (21-32); CHLORIDE LEVEL 107 MEQ/L (98-107); CREATININE FOR GFR 0.72 MG/DL (0.70-1.30); FERRITIN 758 NG/ML (26-388); GLOMERULAR FILTRATION RATE > 60.0 (>49); GLUCOSE, FASTING 71 MG/DL (70-100); LDH LACTATE DEHYDROGENASE 345 U/L (87-241); MAGNESIUM LEVEL 2.2 MG/DL (1.8-2.4); NT-PRO BNP 2491 PG/ML (<125); POTASSIUM SERUM 4.2 MEQ/L (3.5-5.1); SODIUM LEVEL 138 MEQ/L (136-145); TOTAL PROTEIN 5.4 GM/DL (6.4-8.2)
[2021-12-06] MEDS: guaiFENesin ER 600 MG TAB PO SCH ×2 (08:10→21:43)
[2021-12-06] MEDS: APIXABAN 5 MG TAB (ELIQUIS) PO SCH ×2 (08:10→21:43)
[2021-12-06] MEDS: ASPIRIN 81 MG CHEW TABLET PO SCH (08:10)
[2021-12-06] MEDS: dexameTHASONE 20MG/5ML VIAL (J1100 PER 1MG) IV SCH (08:11)
[2021-12-06] MEDS: BARICITINIB 2MG TABLET (OLUMIANT) FOR EUA PO SCH (08:11)
[2021-12-06] MEDS: cefTRIAXone SOD 1 GM in D5W MINI-BAG PLUS 50 ML IV SCH (16:20)
[2021-12-06] MEDS: AZITHROMYCIN INJ 500 MG, VIAL MATE ADAPTER 1 EACH in NS 250 ML IV SCH (17:17)
[2021-12-07] VITALS (9 sets, daily range): BP systolic 102–112; BP diastolic 60–72; O2SAT 90–98
[2021-12-07 08:02] LABS: BASO % 0.1 % (0.0-1.0); EOS # 0.2 10^3/uL (0.0-0.5); EOS % 1.3 % (0.0-3.0); HEMATOCRIT 30.8 % (42.0-52.0); LYMPH # 1.5 10^3/uL (1.5-5.0); MEAN CORPUSCULAR HEMOGLOBIN 32.2 pg (27.0-33.0); MEAN CORPUSCULAR HGB CONC 35.7 g/dl (32.0-36.5); MEAN CORPUSCULAR VOLUME 90.1 fl (80.0-96.0); MONO # 1.1 10^3/uL (0.0-0.8); NEUTROPHILS # 10.6 10^3/uL (1.5-8.5); NEUTROPHILS % 78.5 % (36.0-66.0); PLATELET COUNT, AUTOMATED 224 10^3/uL (150-450); RED BLOOD COUNT 3.42 10^6/uL (4.30-6.10); WHITE BLOOD COUNT 13.5 10^3/uL (4.0-10.0)
[2021-12-07] MEDS: APIXABAN 5 MG TAB (ELIQUIS) PO SCH (08:20)
[2021-12-07] MEDS: guaiFENesin ER 600 MG TAB PO SCH (08:21)
[2021-12-07] MEDS: BARICITINIB 2MG TABLET (OLUMIANT) FOR EUA PO SCH (08:21)
[2021-12-07] MEDS: dexameTHASONE 20MG/5ML VIAL (J1100 PER 1MG) IV SCH (08:21)
[2021-12-07] MEDS: ASPIRIN 81 MG CHEW TABLET PO SCH (08:21)
[2021-12-07 08:24] LABS: BLOOD UREA NITROGEN 19 MG/DL (7-18); CARBON DIOXIDE LEVEL 21 MEQ/L (21-32); CHLORIDE LEVEL 111 MEQ/L (98-107); CREATININE FOR GFR 0.63 MG/DL (0.70-1.30); GLOMERULAR FILTRATION RATE > 60.0 (>49); GLUCOSE, FASTING 70 MG/DL (70-100); MAGNESIUM LEVEL 2.4 MG/DL (1.8-2.4); POTASSIUM SERUM 4.4 MEQ/L (3.5-5.1); SODIUM LEVEL 140 MEQ/L (136-145)
[2021-12-07] MEDS ORDERED: ELIQ5TAB PO (10:07)
[2021-12-07] MEDS ORDERED: MUCI600T31 PO (11:37)
[2021-12-07] MEDS ORDERED: ASPI81CH8 PO (11:37)
[2021-12-07] MEDS ORDERED: PRED10TA2 PO (11:37)
== END 2021-12-07 14:40 | disposition home health service (06) | DRG 177 ==
LOC: M ED 13:12 → M ED INP 19:27 → M 4MAIN 21:30
PROVIDERS: ADMIT Internal Medicine; ATTEND Internal Medicine
PROC: XW033E5 Introduction of Remdesivir Anti-infective into Peripheral Vein, Percutaneous Approach, New Technology Group 5 (ICD-10-PCS; principal; 2021-11-30)
PROC: 3E0333Z Introduction of Anti-inflammatory into Peripheral Vein, Percutaneous Approach (ICD-10-PCS; 2021-11-30)
DX: U07.1 COVID-19 (principal); J12.82 Pneumonia due to coronavirus disease 2019; I21.A1 Myocardial infarction type 2; J15.9 Unspecified bacterial pneumonia; T82.868A Thrombosis due to vascular prosthetic devices, implants and grafts, initial encounter; Z85.118 Personal history of other malignant neoplasm of bronchus and lung; Z90.2 Acquired absence of lung [part of]; Z92.21 Personal history of antineoplastic chemotherapy; J44.9 Chronic obstructive pulmonary disease, unspecified; F32.A Depression, unspecified; F41.9 Anxiety disorder, unspecified; B19.20 Unspecified viral hepatitis C without hepatic coma; Z90.49 Acquired absence of other specified parts of digestive tract; Z87.891 Personal history of nicotine dependence; D64.9 Anemia, unspecified

== ENCOUNTER 2021-12-23 10:17 | Inpatient (IN) | payer MEDICARE ==
[~2021-12-23] VITALS: Ht 177.8 cm; Wt 82.8 kg
[2021-12-23] VITALS (14 sets, daily range): BP systolic 87–107; BP diastolic 55–66
[~2021-12-23 10:17] MED LIST changes: +ASPI81CH8 PO; +ELIQ5TAB PO; +MUCI600T31 PO; +NIRM1TAB6; +PRED10TA2 PO
[2021-12-23] MEDS ORDERED: SODIUM CHLORIDE 0.9% INJ 10 ML SYR IV PRN (10:35)
[2021-12-23] MEDS ORDERED: NS IV ONE (10:45)
[2021-12-23] MEDS ORDERED: CEFEPIME HCL 2 GM in D5W MINI-BAG PLUS 50 ML IV ONE (10:45)
[2021-12-23] MEDS ORDERED: ISOVUE-370 76% 100ML VIAL As Ordered ONE (11:01)
[2021-12-23 11:19] LABS: BASO % 0.1 % (0.0-1.0); EOS % 0.1 % (0.0-3.0); HEMATOCRIT 28.5 % (42.0-52.0); HEMOGLOBIN 10.4 g/dl (13.5-17.5); LYMPH # 0.3 10^3/uL (1.5-5.0); LYMPH % 1.7 % (24.0-44.0); MEAN CORPUSCULAR HEMOGLOBIN 32.6 pg (27.0-33.0); MEAN CORPUSCULAR HGB CONC 36.5 g/dl (32.0-36.5); MEAN CORPUSCULAR VOLUME 89.3 fl (80.0-96.0); MONO # 0.7 10^3/uL (0.0-0.8); NEUTROPHILS # 16.3 10^3/uL (1.5-8.5); NEUTROPHILS % 93.4 % (36.0-66.0); PLATELET COUNT, AUTOMATED 122 10^3/uL (150-450); RED BLOOD COUNT 3.19 10^6/uL (4.30-6.10); WHITE BLOOD COUNT 17.4 10^3/uL (4.0-10.0)
[2021-12-23 11:34] LABS: INR 1.39; PROTHROMBIN TIME 17.5 SECONDS (12.7-14.5)
[2021-12-23 11:36] LABS: ALBUMIN 2.8 GM/DL (3.2-5.2); ALT/SGPT 14 U/L (12-78); BILIRUBIN,DIRECT 0.6 MG/DL (0.0-0.2); BILIRUBIN,TOTAL 1.6 MG/DL (0.2-1.0); BLOOD UREA NITROGEN 10 MG/DL (7-18); CALCIUM LEVEL 8.3 MG/DL (8.8-10.2); CARBON DIOXIDE LEVEL 23 MEQ/L (21-32); CHLORIDE LEVEL 109 MEQ/L (98-107); CREATININE FOR GFR 0.87 MG/DL (0.70-1.30); GLOMERULAR FILTRATION RATE > 60.0 (>49); GLUCOSE, FASTING 132 MG/DL (70-100); NT-PRO BNP 1650 PG/ML (<125); POTASSIUM SERUM 4.3 MEQ/L (3.5-5.1); SODIUM LEVEL 139 MEQ/L (136-145); TOTAL PROTEIN 5.8 GM/DL (6.4-8.2)
[2021-12-23 11:36] LABS: PARTIAL THROMBOPLASTIN TIME 53.4 SECONDS (25.9-37.0)
[2021-12-23 11:41] LABS: CK-MB VALUE MASS 2.1 NG/ML (<3.6)
[2021-12-23 11:52] LABS: C REACTIVE PROTEIN QUANTITATIV 7.3 MG/DL (0.00-0.30)
[2021-12-23] MEDS: NOREPINEPHRINE BITARTRATE 8 MG in D5W 492 ML IV SCH (12:01)
[2021-12-23] MEDS ORDERED: FUROSEMIDE 40MG/4ML VIAL (J1940) As Ordered ONE (13:08)
[2021-12-23] MEDS ORDERED: FUROSEMIDE 40MG/4ML VIAL (J1940) IV ONE (13:10)
[2021-12-23 13:24] LABS: APPEARANCE, URINE CLEAR (CLEAR); BACTERIA, URINE AUTO NEGATIVE (NEGATIVE); BILIRUBIN, URINE AUTO NEGATIVE (NEGATIVE); BLOOD, URINE BLOOD NEGATIVE (NEGATIVE); COLOR, URINE YELLOW (YELLOW); GLUCOSE, URINE (UA) AUTO NEGATIVE (NEGATIVE); KETONE, URINE AUTO NEGATIVE (NEGATIVE); LEUKOCYTE ESTERASE, URINE AUTO NEGATIVE (NEGATIVE); NITRITE, URINE AUTO NEGATIVE (NEGATIVE); PROTEIN, URINE AUTO NEGATIVE (NEGATIVE); RBC, URINE AUTO 0 /HPF (0-3); SPECIFIC GRAVITY URINE AUTO 1.019 (1.002-1.035); SQUAMOUS EPITHELIAL CELL UR AU 0 /HPF (0-6); UROBILINOGEN, URINE AUTO 0.2 mg/dL (0.0-2.0); WBC, URINE AUTO 1 /HPF (0-3)
[2021-12-23] MEDS ORDERED: ELIQ5TAB PO (13:50)
[2021-12-23] MEDS ORDERED: MUCI600T31 PO (13:50)
[2021-12-23] MEDS ORDERED: ASPI81CH33 PO (13:50)
[2021-12-23] MEDS ORDERED: HOME MED LIST COMPLETE! XX SCH (13:55)
[2021-12-23] MEDS ORDERED: dexmedeTOMidine 200 MCG in IV 1 EA IV SCH (14:10)
[2021-12-23 14:54] LABS: ABG BASE EXCESS -5.3 (-2.0-2.0); ABG HCO3 18.7 MEQ/L (22.0-26.0); ABG O2 SATURATION 99.3 % (95.0-99.0); ABG PARTIAL PRESSURE CO2 31.8 mmHg (35.0-45.0); ABG PARTIAL PRESSURE O2 184.3 mmHg (75.0-100.0); ABG STANDARD HCO3 20.2 MEQ/L (22.0-26.0); ABG TOTAL CO2 19.7 MEQ/L (23.0-31.0); ABG pH (ARTERIAL) 7.387 UNITS (7.350-7.450)
[2021-12-23] MEDS: CEFEPIME HCL 2 GM in D5W MINI-BAG PLUS 50 ML IV SCH (18:20)
[2021-12-23] MEDS: methylPREDNISolone 125MG 2ML VIAL IV SCH (18:20)
[2021-12-23] MEDS: IPRATROPIUM 0.5MG/ALBUTEROL 2.5MG INH SOL UD 3ML (DUONEB) NEB SCH (19:23)
[2021-12-23] MEDS: BUDESONIDE 0.5 MG/2 ML INHALATION SUSPENSION INH SCH (19:23)
[2021-12-23] MEDS: CHLORHEXIDINE GLUCONATE 0.12 % 15ML UDC (PERIDEX ORAL RINSE) MT SCH (20:14)
[2021-12-24] VITALS (31 sets, daily range): BP systolic 90–157; BP diastolic 49–79
[2021-12-24] MEDS: methylPREDNISolone 125MG 2ML VIAL IV SCH ×2 (03:20→15:59)
[2021-12-24] MEDS: CEFEPIME HCL 2 GM in D5W MINI-BAG PLUS 50 ML IV SCH ×3 (03:20→19:05)
[2021-12-24 03:40] LABS: BASO % 0.1 % (0.0-1.0); HEMATOCRIT 25.8 % (42.0-52.0); HEMOGLOBIN 9.4 g/dl (13.5-17.5); LYMPH # 0.7 10^3/uL (1.5-5.0); LYMPH % 7.7 % (24.0-44.0); MEAN CORPUSCULAR HEMOGLOBIN 32.4 pg (27.0-33.0); MEAN CORPUSCULAR HGB CONC 36.4 g/dl (32.0-36.5); MONO # 0.2 10^3/uL (0.0-0.8); MONO % 2.6 % (2.0-8.0); NEUTROPHILS # 8.2 10^3/uL (1.5-8.5); NEUTROPHILS % 89.1 % (36.0-66.0); PLATELET COUNT, AUTOMATED 123 10^3/uL (150-450); WHITE BLOOD COUNT 9.2 10^3/uL (4.0-10.0)
[2021-12-24 04:03] LABS: ALBUMIN 2.7 GM/DL (3.2-5.2); ALT/SGPT 14 U/L (12-78); BILIRUBIN,TOTAL 1.5 MG/DL (0.2-1.0); BLOOD UREA NITROGEN 13 MG/DL (7-18); CARBON DIOXIDE LEVEL 24 MEQ/L (21-32); CHLORIDE LEVEL 110 MEQ/L (98-107); CREATININE FOR GFR 0.69 MG/DL (0.70-1.30); GLOMERULAR FILTRATION RATE > 60.0 (>49); GLUCOSE, FASTING 146 MG/DL (70-100); POTASSIUM SERUM 3.9 MEQ/L (3.5-5.1); SODIUM LEVEL 140 MEQ/L (136-145); TOTAL PROTEIN 5.5 GM/DL (6.4-8.2)
[2021-12-24] MEDS: NOREPINEPHRINE BITARTRATE 8 MG in D5W 492 ML IV SCH (04:30)
[2021-12-24 06:04] LABS: ABG BASE EXCESS -2.2 (-2.0-2.0); ABG HCO3 21.2 MEQ/L (22.0-26.0); ABG PARTIAL PRESSURE CO2 31.7 mmHg (35.0-45.0); ABG PARTIAL PRESSURE O2 161.1 mmHg (75.0-100.0); ABG STANDARD HCO3 22.7 MEQ/L (22.0-26.0); ABG TOTAL CO2 22.2 MEQ/L (23.0-31.0); ABG pH (ARTERIAL) 7.444 UNITS (7.350-7.450)
[2021-12-24] MEDS: IPRATROPIUM 0.5MG/ALBUTEROL 2.5MG INH SOL UD 3ML (DUONEB) NEB SCH ×4 (07:17→21:21)
[2021-12-24] MEDS: BUDESONIDE 0.5 MG/2 ML INHALATION SUSPENSION INH SCH ×2 (07:17→21:21)
[2021-12-24] MEDS: CHLORHEXIDINE GLUCONATE 0.12 % 15ML UDC (PERIDEX ORAL RINSE) MT SCH ×2 (08:46→21:51)
[2021-12-24] MEDS ORDERED: FUROSEMIDE 40MG/4ML VIAL (J1940) IV ONE (09:10)
[2021-12-24] MEDS: APIXABAN 5 MG TAB (ELIQUIS) PO SCH ×2 (10:44→21:51)
[2021-12-24 16:34] LABS: ABG HCO3 18.1 MEQ/L (22.0-26.0); ABG O2 SATURATION 90.7 % (95.0-99.0); ABG PARTIAL PRESSURE CO2 24.4 mmHg (35.0-45.0); ABG PARTIAL PRESSURE O2 56.4 mmHg (75.0-100.0); ABG TOTAL CO2 18.8 MEQ/L (23.0-31.0); ABG pH (ARTERIAL) 7.488 UNITS (7.350-7.450)
[2021-12-24] MEDS: MIDODRINE 5 MG TAB PO SCH (17:42)
[2021-12-24] MEDS ORDERED: LEVALBUTEROL 1.25 MG/0.5 ML CONCENTRATE NEB INH PRN (18:00)
[2021-12-24 18:34] LABS: MB/CK RELATIVE INDEX 10.81 (< OR =4)
[2021-12-24] MEDS ORDERED: FUROSEMIDE 20MG/2ML VIAL (J1940) IV ONE ×2 (18:55→19:30)
[2021-12-25] VITALS (13 sets, daily range): BP systolic 91–128; BP diastolic 50–70
[2021-12-25] MEDS: CEFEPIME HCL 2 GM in D5W MINI-BAG PLUS 50 ML IV SCH ×3 (03:17→18:33)
[2021-12-25] MEDS: methylPREDNISolone 125MG 2ML VIAL IV SCH ×2 (03:18→15:58)
[2021-12-25] MEDS ORDERED: zolPIDEM TARTRATE 5 MG TAB PO PRN (07:50)
[2021-12-25] MEDS: BUDESONIDE 0.5 MG/2 ML INHALATION SUSPENSION INH SCH ×2 (07:57→19:22)
[2021-12-25] MEDS: IPRATROPIUM 0.5MG/ALBUTEROL 2.5MG INH SOL UD 3ML (DUONEB) NEB SCH ×4 (07:57→19:21)
[2021-12-25 08:57] LABS: BASO % 0.1 % (0.0-1.0); HEMATOCRIT 31.1 % (42.0-52.0); HEMOGLOBIN 10.8 g/dl (13.5-17.5); LYMPH # 0.9 10^3/uL (1.5-5.0); LYMPH % 5.9 % (24.0-44.0); MEAN CORPUSCULAR HEMOGLOBIN 31.4 pg (27.0-33.0); MEAN CORPUSCULAR HGB CONC 34.7 g/dl (32.0-36.5); MEAN CORPUSCULAR VOLUME 90.4 fl (80.0-96.0); MONO # 0.2 10^3/uL (0.0-0.8); MONO % 1.4 % (2.0-8.0); NEUTROPHILS # 13.6 10^3/uL (1.5-8.5); NEUTROPHILS % 92.1 % (36.0-66.0); PLATELET COUNT, AUTOMATED 134 10^3/uL (150-450); RED BLOOD COUNT 3.44 10^6/uL (4.30-6.10); WHITE BLOOD COUNT 14.8 10^3/uL (4.0-10.0)
[2021-12-25] MEDS: CHLORHEXIDINE GLUCONATE 0.12 % 15ML UDC (PERIDEX ORAL RINSE) MT SCH ×2 (09:00→20:03)
[2021-12-25 09:24] LABS: BLOOD UREA NITROGEN 22 MG/DL (7-18); CALCIUM LEVEL 8.9 MG/DL (8.8-10.2); CARBON DIOXIDE LEVEL 25 MEQ/L (21-32); CHLORIDE LEVEL 109 MEQ/L (98-107); CREATININE FOR GFR 0.75 MG/DL (0.70-1.30); GLOMERULAR FILTRATION RATE > 60.0 (>49); GLUCOSE, FASTING 111 MG/DL (70-100); POTASSIUM SERUM 3.8 MEQ/L (3.5-5.1); SODIUM LEVEL 142 MEQ/L (136-145)
[2021-12-25] MEDS: FUROSEMIDE 20MG/2ML VIAL (J1940) IV SCH ×2 (09:27→18:33)
[2021-12-25] MEDS: APIXABAN 5 MG TAB (ELIQUIS) PO SCH ×2 (09:27→20:03)
[2021-12-25] MEDS: MIDODRINE 5 MG TAB PO SCH ×3 (09:27→15:59)
[2021-12-25 09:28] LABS: CK-MB VALUE MASS 3.4 NG/ML (<3.6); MB/CK RELATIVE INDEX 9.44 (< OR =4)
[2021-12-26] MEDS: CEFEPIME HCL 2 GM in D5W MINI-BAG PLUS 50 ML IV SCH (03:19)
[2021-12-26] MEDS: methylPREDNISolone 125MG 2ML VIAL IV SCH ×2 (03:19→14:26)
[2021-12-26 06:00] VITALS: BP 112/67
[2021-12-26] MEDS: BUDESONIDE 0.5 MG/2 ML INHALATION SUSPENSION INH SCH ×2 (07:34→19:23)
[2021-12-26] MEDS: IPRATROPIUM 0.5MG/ALBUTEROL 2.5MG INH SOL UD 3ML (DUONEB) NEB SCH ×4 (07:34→19:23)
[2021-12-26] MEDS: APIXABAN 5 MG TAB (ELIQUIS) PO SCH ×2 (08:42→20:22)
[2021-12-26] MEDS: CHLORHEXIDINE GLUCONATE 0.12 % 15ML UDC (PERIDEX ORAL RINSE) MT SCH ×2 (08:42→20:22)
[2021-12-26] MEDS: MIDODRINE 5 MG TAB PO SCH ×3 (08:42→16:14)
[2021-12-26] MEDS: FUROSEMIDE 20MG/2ML VIAL (J1940) IV SCH ×2 (08:42→16:15)
[2021-12-26 08:43] VITALS: BP 102/60
[2021-12-26] MEDS: LevoFLOXacin 750 MG TABLET PO SCH (11:23)
[2021-12-26 14:00] VITALS: BP 96/59
[2021-12-26 16:13] VITALS: BP 100/60
[2021-12-26 22:00] VITALS: BP 116/69
[2021-12-27] MEDS: methylPREDNISolone 125MG 2ML VIAL IV SCH ×2 (02:15→15:30)
[2021-12-27] MEDS: LevoFLOXacin 750 MG TABLET PO SCH (05:16)
[2021-12-27 05:40] VITALS: BP 98/60
[2021-12-27] MEDS: IPRATROPIUM 0.5MG/ALBUTEROL 2.5MG INH SOL UD 3ML (DUONEB) NEB SCH ×4 (07:37→20:18)
[2021-12-27] MEDS: BUDESONIDE 0.5 MG/2 ML INHALATION SUSPENSION INH SCH ×2 (07:37→20:18)
[2021-12-27] MEDS: MIDODRINE 5 MG TAB PO SCH ×3 (08:58→15:30)
[2021-12-27] MEDS: CHLORHEXIDINE GLUCONATE 0.12 % 15ML UDC (PERIDEX ORAL RINSE) MT SCH ×2 (08:58→20:01)
[2021-12-27] MEDS: APIXABAN 5 MG TAB (ELIQUIS) PO SCH ×2 (08:58→20:01)
[2021-12-27] MEDS: FUROSEMIDE 20MG/2ML VIAL (J1940) IV SCH ×2 (08:58→16:19)
[2021-12-27] MEDS: DOXYCYCLINE HYCLATE 100MG TABLET PO SCH ×2 (11:06→20:01)
[2021-12-27 14:00] VITALS: BP 102/63
[2021-12-27 19:56] VITALS: BP 111/63
[2021-12-28] MEDS: methylPREDNISolone 125MG 2ML VIAL IV SCH (02:46)
[2021-12-28] MEDS: LevoFLOXacin 750 MG TABLET PO SCH (05:18)
[2021-12-28 05:29] VITALS: BP 95/55
[2021-12-28] MEDS: IPRATROPIUM 0.5MG/ALBUTEROL 2.5MG INH SOL UD 3ML (DUONEB) NEB SCH ×2 (07:14→11:08)
[2021-12-28] MEDS: BUDESONIDE 0.5 MG/2 ML INHALATION SUSPENSION INH SCH (07:14)
[2021-12-28] MEDS: MIDODRINE 5 MG TAB PO SCH ×2 (08:47→12:15)
[2021-12-28] MEDS: CHLORHEXIDINE GLUCONATE 0.12 % 15ML UDC (PERIDEX ORAL RINSE) MT SCH (08:47)
[2021-12-28] MEDS: DOXYCYCLINE HYCLATE 100MG TABLET PO SCH (08:47)
[2021-12-28] MEDS: APIXABAN 5 MG TAB (ELIQUIS) PO SCH (08:47)
[2021-12-28] MEDS ORDERED: MIDO5TA PO (08:56)
[2021-12-28] MEDS ORDERED: BACITAB PO (08:56)
[2021-12-28] MEDS ORDERED: LEVO750T13 PO (08:56)
[2021-12-28] MEDS ORDERED: DOXY100T PO (08:56)
[2021-12-28] MEDS ORDERED: PRIL20TA2 PO (08:56)
[2021-12-28] MEDS ORDERED: PRED10TA2 PO (08:56)
[2021-12-28] MEDS ORDERED: PRED20TA PO (08:56)
[2021-12-28 09:56] LABS: BASO % 0.2 % (0.0-1.0); HEMATOCRIT 34.2 % (42.0-52.0); HEMOGLOBIN 12.3 g/dl (13.5-17.5); LYMPH # 0.5 10^3/uL (1.5-5.0); LYMPH % 4.5 % (24.0-44.0); MEAN CORPUSCULAR VOLUME 89.1 fl (80.0-96.0); MONO # 0.3 10^3/uL (0.0-0.8); MONO % 2.6 % (2.0-8.0); NEUTROPHILS # 9.7 10^3/uL (1.5-8.5); NEUTROPHILS % 91.8 % (36.0-66.0); PLATELET COUNT, AUTOMATED 177 10^3/uL (150-450); RED BLOOD COUNT 3.84 10^6/uL (4.30-6.10); WHITE BLOOD COUNT 10.6 10^3/uL (4.0-10.0)
[2021-12-28 10:31] LABS: CK-MB VALUE MASS 1.8 NG/ML (<3.6); MB/CK RELATIVE INDEX 11.25 (< OR =4)
[2021-12-28 10:34] LABS: ALBUMIN 3.5 GM/DL (3.2-5.2); ALT/SGPT 27 U/L (12-78); BILIRUBIN,TOTAL 1.6 MG/DL (0.2-1.0); BLOOD UREA NITROGEN 26 MG/DL (7-18); CALCIUM LEVEL 9.5 MG/DL (8.8-10.2); CARBON DIOXIDE LEVEL 22 MEQ/L (21-32); CHLORIDE LEVEL 105 MEQ/L (98-107); GLOMERULAR FILTRATION RATE > 60.0 (>49); GLUCOSE, FASTING 126 MG/DL (70-100); NT-PRO BNP 2990 PG/ML (<125); POTASSIUM SERUM 4.3 MEQ/L (3.5-5.1); SODIUM LEVEL 139 MEQ/L (136-145); TOTAL PROTEIN 6.7 GM/DL (6.4-8.2)
== END 2021-12-28 12:46 | disposition home health service (06) | DRG 871 ==
LOC: EDBD 10:17 → M ED 10:17 → M ED INP 14:07 → ENRESERV 14:28 → M ICU 17:29 → M MSPAV 12-25 21:35
PROVIDERS: ADMIT Internal Medicine; ATTEND General Practice
PROC: B246ZZZ Ultrasonography of Right and Left Heart (ICD-10-PCS; principal; 2021-12-24)
DX: A41.1 Sepsis due to other specified staphylococcus (principal); J96.01 Acute respiratory failure with hypoxia; J18.9 Pneumonia, unspecified organism; I21.A1 Myocardial infarction type 2; J90 Pleural effusion, not elsewhere classified; J44.0 Chronic obstructive pulmonary disease with (acute) lower respiratory infection; J44.1 Chronic obstructive pulmonary disease with (acute) exacerbation; N39.0 Urinary tract infection, site not specified; Z85.118 Personal history of other malignant neoplasm of bronchus and lung; Z90.2 Acquired absence of lung [part of]; J84.170 Interstitial lung disease with progressive fibrotic phenotype in diseases classified elsewhere; F41.9 Anxiety disorder, unspecified; F32.A Depression, unspecified; Z90.49 Acquired absence of other specified parts of digestive tract; Z87.891 Personal history of nicotine dependence; Z79.01 Long term (current) use of anticoagulants; Z79.82 Long term (current) use of aspirin; Z79.899 Other long term (current) drug therapy; Z20.822 Contact with and (suspected) exposure to COVID-19; E87.70 Fluid overload, unspecified; U09.9 Post COVID-19 condition, unspecified; I95.9 Hypotension, unspecified; I51.4 Myocarditis, unspecified

== ENCOUNTER → 2022-03-11 | Outpatient (CLI) | payer MEDICARE ==
[~2022-03-11] MED LIST changes: +ASPI81CH33 PO; +BACITAB PO; +DOXY100T PO; +LEVO1TAB40 PO; +MIDO5TA PO; +PRED20TA PO; +PRIL20TA2 PO
== END ==
LOC: M RAD 10:22
PROVIDERS: ATTEND Internal Medicine Pulmonary Disease
DX: R91.8 Other nonspecific abnormal finding of lung field (principal)

== ENCOUNTER → 2022-04-25 | Outpatient (CLI) | payer MEDICARE ==
[2022-04-25 15:10] LABS: BASO # 0.1 10^3/uL (0.0-0.2); BASO % 0.5 % (0.0-1.0); EOS # 0.2 10^3/uL (0.0-0.5); EOS % 2.3 % (0.0-3.0); HEMATOCRIT 37.2 % (42.0-52.0); HEMOGLOBIN 13.7 g/dl (13.5-17.5); LYMPH % 22.4 % (24.0-44.0); MEAN CORPUSCULAR HEMOGLOBIN 32.1 pg (27.0-33.0); MEAN CORPUSCULAR VOLUME 87.1 fl (80.0-96.0); MONO # 0.7 10^3/uL (0.0-0.8); NEUTROPHILS # 6.1 10^3/uL (1.5-8.5); NEUTROPHILS % 66.5 % (36.0-66.0); PLATELET COUNT, AUTOMATED 155 10^3/uL (150-450); RED BLOOD COUNT 4.27 10^6/uL (4.30-6.10); WHITE BLOOD COUNT 9.1 10^3/uL (4.0-10.0)
[2022-04-25 15:11] LABS: MEAN CORPUSCULAR HGB CONC 36.8 g/dl (32.0-36.5)
[2022-04-25 15:49] LABS: ALBUMIN 4.4 GM/DL (3.2-5.2); ALT/SGPT 20 U/L (12-78); BILIRUBIN,TOTAL 1.4 MG/DL (0.2-1.0); BLOOD UREA NITROGEN 17 MG/DL (7-18); CALCIUM LEVEL 9.2 MG/DL (8.8-10.2); CARBON DIOXIDE LEVEL 27 MEQ/L (21-32); CHLORIDE LEVEL 109 MEQ/L (98-107); CREATININE FOR GFR 0.88 MG/DL (0.70-1.30); GLOMERULAR FILTRATION RATE > 60.0 (>49); GLUCOSE, FASTING 96 MG/DL (70-100); POTASSIUM SERUM 5.3 MEQ/L (3.5-5.1); SODIUM LEVEL 140 MEQ/L (136-145); TOTAL PROTEIN 7.1 GM/DL (6.4-8.2)
== END ==
LOC: M LAB 14:05
PROVIDERS: ATTEND Family Medicine
DX: D64.9 Anemia, unspecified (principal)

== ENCOUNTER → 2022-10-15 | Outpatient (CLI) | payer MEDICAID, MEDICARE ==
[2022-10-15 15:04] LABS: BLOOD UREA NITROGEN 11 MG/DL (9-23); CALCIUM LEVEL 8.7 MG/DL (8.3-10.6); CARBON DIOXIDE LEVEL 25 MMOL/L (20-31); CHLORIDE LEVEL 108 MMOL/L (98-107); CREATININE FOR GFR 0.79 MG/DL (0.70-1.30); GLOMERULAR FILTRATION RATE > 60.0 (>49); GLUCOSE, FASTING 78 MG/DL (74-106); POTASSIUM SERUM 5.9 MMOL/L (3.5-5.1); SODIUM LEVEL 138 MMOL/L (136-145)
== END ==
LOC: M LAB 12:45
PROVIDERS: ATTEND Physician Assistant
DX: I25.5 Ischemic cardiomyopathy (principal)

== ENCOUNTER → 2022-12-04 | Outpatient (CLI) | payer MEDICARE ==
[2022-12-04 14:18] LABS: BLOOD UREA NITROGEN 12 MG/DL (9-23); CALCIUM LEVEL 8.4 MG/DL (8.3-10.6); CARBON DIOXIDE LEVEL 23 MMOL/L (20-31); CHLORIDE LEVEL 106 MMOL/L (98-107); CREATININE FOR GFR 0.94 MG/DL (0.70-1.30); GLOMERULAR FILTRATION RATE > 60.0 (>49); GLUCOSE, FASTING 127 MG/DL (74-106); POTASSIUM SERUM 4.6 MMOL/L (3.5-5.1); SODIUM LEVEL 138 MMOL/L (136-145)
== END ==
LOC: M LAB 13:00
PROVIDERS: ATTEND Physician Assistant
DX: I42.8 Other cardiomyopathies (principal)

== ENCOUNTER → 2023-10-02 | Outpatient (CLI) | payer MEDICARE ==
[2023-10-02 14:33] LABS: BLOOD UREA NITROGEN 30 MG/DL (9-23); CALCIUM LEVEL 8.7 MG/DL (8.3-10.6); CARBON DIOXIDE LEVEL 23 MMOL/L (20-31); CHLORIDE LEVEL 108 MMOL/L (98-107); CREATININE FOR GFR 0.93 MG/DL (0.70-1.30); GLOMERULAR FILTRATION RATE > 60.0 (>49); GLUCOSE, FASTING 108 MG/DL (74-106); POTASSIUM SERUM 5.2 MMOL/L (3.5-5.1); SODIUM LEVEL 137 MMOL/L (136-145)
== END ==
LOC: M LAB 13:07
PROVIDERS: ATTEND Physician Assistant
DX: I42.9 Cardiomyopathy, unspecified (principal)